=== PATIENT | male | born 1960 | race African-American/Black ===

== ENCOUNTER 2019-10-07 09:40 | Inpatient (IN) | payer OTHER ==
[~2019-10-07] VITALS: Ht 175.3 cm; Wt 68.0 kg
[2019-10-07 10:06] LABS: BASOPHILS % 0.6 % (0.0-2.0); EOSINOPHILS % 2.9 % (0.0-5.0); HEMATOCRIT. 41.9 % (42.0-52.0); HEMOGLOBIN. 13.9 g/dL (14.0-18.0); LYMPHOCYTES % 61.7 % (20.0-50.0); MEAN CORPUSCULAR HEMOGLOBIN 28.8 pg (28.0-32.0); MEAN CORPUSCULAR VOLUME 87.2 fL (80.0-94.0); MEAN PLATELET VOLUME 8.4 fl (7.4-10.4); MONOCYTES % 7.1 % (2.0-8.0); NEUTROPHILS % 27.7 % (40.0-76.0); PLATELET 316 x1000/uL (130-400); RED BLOOD CELL COUNT 4.81 mill/uL (4.7-6.1); RED CELL DISTRIBUTION WIDTH 14.8 % (11.6-14.6)
[2019-10-07 10:13] LABS: CHLORIDE 108 mEq/L (98-107)
[2019-10-07 10:17] LABS: ETHANOL BLOOD < 10 mg/dL
[2019-10-07 10:55] LABS: CLARITY URINE CLOUDY (CLEAR); COLOR URINE YELLOW (YELLOW); KETONES URINE TRACE (NEGATIVE); LEUKOCYTE ESTERASE URINE TRACE (NEGATIVE); NITRITE URINE NEGATIVE (NEGATIVE); OCCULT BLOOD URINE NEGATIVE (NEGATIVE); PH URINE 5.5 (4.5-8.0); PROTEIN URINE 2+ (NEGATIVE); SPECIFIC GRAVITY URINE 1.021 (1.005-1.030)
[2019-10-07 11:30] LABS: *AMPHETAMINES SCREEN URINE NEGATIVE (NEGATIVE); *BARBITURATES SCREEN URINE NEGATIVE (NEGATIVE); *BENZODIAZEPINES SCREEN URINE NEGATIVE (NEGATIVE); *COCAINE SCREEN URINE NEGATIVE (NEGATIVE); METHADONE URINE SCREEN NEGATIVE (NEGATIVE); OPIATES URINE SCREEN PRESUMTIVE POSITIVE (NEGATIVE)
[2019-10-07 11:31] LABS: CANNABINOID URINE SCREEN PRESUMTIVE POSITIVE (NEGATIVE); PHENCYCLIDINE URINE SCREEN NEGATIVE (NEGATIVE)
[2019-10-07] MEDS ORDERED: ASPIRIN 325MG EC TABLET PO ONE (13:45)
[2019-10-07] MEDS ORDERED: HYDROCODONE/ACETAMINOPHEN 5/325MG TABLET PO PRN (17:08)
[2019-10-07] MEDS: MORPHINE SULFATE 2 MG/ML CPJ (NOT FOR IM USE) IV PRN (18:19)
[2019-10-07] MEDS ORDERED: CLONIDINE 0.1MG TABLET PO PRN (20:30)
[2019-10-07] MEDS ORDERED: ONDANSETRON HCL 4MG/2ML INJ IV PRN (20:30)
[2019-10-07] MEDS ORDERED: LORAZEPAM 2MG/ML CPJ IV PRN (20:30)
[2019-10-07] MEDS ORDERED: NALOXONE HCL 0.4 MG/ML 1ML VIAL IV ONE (20:30)
[2019-10-07] MEDS ORDERED: ACETAMINOPHEN 325MG TABLET PO PRN (20:30)
[2019-10-07] MEDS ORDERED: LEVETIRACETAM 500 MG in SODIUM CHLORIDE 0.9% 100 ML IV SCH (20:30)
[2019-10-07] MEDS ORDERED: IPRATROPIUM/ALBUTEROL 0.5-3(2.5)MG/3ML NEB HHN PRN (20:30)
[2019-10-07] MEDS ORDERED: DOCUSATE SODIUM 100MG CAPSULE PO PRN (20:30)
[2019-10-07] MEDS ORDERED: LEVETIRACETAM 500MG PREMIX 100 ML IV SCH (21:00)
[2019-10-07] MEDS ORDERED: NALOXONE HCL 0.4 MG/ML 1ML VIAL IV PRN (21:00)
[2019-10-07] MEDS: SODIUM CHLORIDE 0.9% 1,000 ML IV SCH (21:06)
[2019-10-07] MEDS: HYDROCODONE/ACETAMINOPHEN 5/325MG TABLET PO PRN (21:06)
[2019-10-07] MEDS: LORAZEPAM 2MG/ML CPJ IV PRN (21:06)
[2019-10-07 22:02] LABS: FOLIC ACID (FOLATE) SERUM 11.1 ng/mL (>5.38)
[2019-10-07] MEDS ORDERED: HYDR-3281 PO (23:51)
[2019-10-07 23:52] VITALS: BP 133/79
[2019-10-08] VITALS: BP 133/79
[2019-10-08 04:00] VITALS: BP 128/86
[2019-10-08] MEDS: MORPHINE SULFATE 2 MG/ML CPJ (NOT FOR IM USE) IV PRN (04:03)
[2019-10-08] MEDS: SODIUM CHLORIDE 0.9% 1,000 ML IV SCH (06:29)
[2019-10-08 08:00] VITALS: BP 112/78
[2019-10-08] MEDS: LEVETIRACETAM 500MG PREMIX 100 ML IV SCH ×2 (10:16→21:54)
[2019-10-08 12:00] VITALS: BP 121/82
[2019-10-08] MEDS: HYDROCODONE/ACETAMINOPHEN 5/325MG TABLET PO PRN ×2 (14:31→21:55)
[2019-10-08 16:00] VITALS: BP 119/80
[2019-10-08] MEDS: ATORVASTATIN CALCIUM 40MG TABLET PO SCH (21:55)
[2019-10-09 08:00] VITALS: BP 132/54
[2019-10-09] MEDS: LEVETIRACETAM 500MG PREMIX 100 ML IV SCH ×2 (09:13→20:24)
[2019-10-09 10:56] LABS: EOSINOPHILS % 1.4 % (0.0-5.0); HEMATOCRIT. 37.8 % (42.0-52.0); HEMOGLOBIN. 12.4 g/dL (14.0-18.0); MEAN CORPUSCULAR VOLUME 85.5 fL (80.0-94.0); MEAN PLATELET VOLUME 8.6 fl (7.4-10.4); NEUTROPHILS % 41.6 % (40.0-76.0); PLATELET 304 x1000/uL (130-400); RED BLOOD CELL COUNT 4.42 mill/uL (4.7-6.1); RED CELL DISTRIBUTION WIDTH 14.4 % (11.6-14.6)
[2019-10-09 11:06] LABS: CHLORIDE 109 mEq/L (98-107)
[2019-10-09 12:00] VITALS: BP 126/59
[2019-10-09] MEDS: SODIUM CHLORIDE 0.9% 1,000 ML IV SCH (12:29)
[2019-10-09] MEDS ORDERED: POTASSIUM CHLORIDE 20MEQ TABLET SR PO NR (15:00)
[2019-10-09] MEDS: LORAZEPAM 2MG/ML CPJ IV PRN ×2 (15:43→20:54)
[2019-10-09 16:00] VITALS: BP 129/57
[2019-10-09 20:00] VITALS: BP 128/80
[2019-10-09] MEDS: ATORVASTATIN CALCIUM 40MG TABLET PO SCH (20:24)
[2019-10-10] VITALS: BP 121/83
[2019-10-10] MEDS: SODIUM CHLORIDE 0.9% 1,000 ML IV SCH ×3 (02:36→18:00)
[2019-10-10 04:00] VITALS: BP 124/88
[2019-10-10 07:43] LABS: BASOPHILS % 0.7 % (0.0-2.0); EOSINOPHILS % 2.8 % (0.0-5.0); HEMATOCRIT. 37.2 % (42.0-52.0); HEMOGLOBIN. 12.3 g/dL (14.0-18.0); LYMPHOCYTES % 63.5 % (20.0-50.0); MEAN CORPUSCULAR HEMOGLOBIN 28.5 pg (28.0-32.0); MEAN CORPUSCULAR VOLUME 86.2 fL (80.0-94.0); MEAN PLATELET VOLUME 8.7 fl (7.4-10.4); MONOCYTES % 8.3 % (2.0-8.0); NEUTROPHILS % 24.7 % (40.0-76.0); PLATELET 291 x1000/uL (130-400); RED BLOOD CELL COUNT 4.32 mill/uL (4.7-6.1); RED CELL DISTRIBUTION WIDTH 14.6 % (11.6-14.6)
[2019-10-10 08:00] VITALS: BP 126/79
[2019-10-10 08:00] LABS: CHLORIDE 110 mEq/L (98-107)
[2019-10-10] MEDS: LEVETIRACETAM 500MG PREMIX 100 ML IV SCH ×2 (10:05→21:11)
[2019-10-10 12:00] VITALS: BP 136/85
[2019-10-10 16:00] VITALS: BP 127/85
[2019-10-10] MEDS: HYDROCODONE/ACETAMINOPHEN 5/325MG TABLET PO PRN (18:11)
[2019-10-10 20:00] VITALS: BP 130/85
[2019-10-10] MEDS: ATORVASTATIN CALCIUM 40MG TABLET PO SCH (21:30)
[2019-10-10 22:22] LABS: BASOPHILS % 0.9 % (0.0-2.0); EOSINOPHILS % 1.9 % (0.0-5.0); HEMATOCRIT. 37.4 % (42.0-52.0); HEMOGLOBIN. 12.3 g/dL (14.0-18.0); LYMPHOCYTES % 59.8 % (20.0-50.0); MEAN CORPUSCULAR HEMOGLOBIN 28.3 pg (28.0-32.0); MEAN CORPUSCULAR VOLUME 85.9 fL (80.0-94.0); MEAN PLATELET VOLUME 8.9 fl (7.4-10.4); MONOCYTES % 8.1 % (2.0-8.0); NEUTROPHILS % 29.3 % (40.0-76.0); PLATELET 302 x1000/uL (130-400); RED BLOOD CELL COUNT 4.36 mill/uL (4.7-6.1); RED CELL DISTRIBUTION WIDTH 14.5 % (11.6-14.6)
[2019-10-10 22:24] LABS: CHLORIDE 110 mEq/L (98-107)
[2019-10-11] VITALS: BP 126/88
[2019-10-11] MEDS: HYDROCODONE/ACETAMINOPHEN 5/325MG TABLET PO PRN (02:07)
[2019-10-11 08:00] VITALS: BP 126/85
[2019-10-11] MEDS: LEVETIRACETAM 500MG PREMIX 100 ML IV SCH (09:00)
[2019-10-11] MEDS: SODIUM CHLORIDE 0.9% 1,000 ML IV SCH ×2 (09:48→14:29)
[2019-10-11 12:00] VITALS: BP 124/85
[2019-10-11] MEDS ORDERED: KEPP500 MT (15:59)
[2019-10-11] MEDS ORDERED: LIP40 PO (15:59)
[2019-10-11 16:00] VITALS: BP 127/86
[2019-10-11 18:28] VITALS: BP 118/82
[2019-10-11 20:00] VITALS: BP 105/60
== END 2019-10-11 20:52 | disposition home or self-care (01) | DRG 100 ==
LOC: ER 09:40 → EDBD 09:40 → ENRESERV 21:21 → 5WST 22:48
PROVIDERS: ADMIT Internal Medicine; ATTEND Internal Medicine
DX: G40.909 Epilepsy, unspecified, not intractable, without status epilepticus (principal); G92 Toxic encephalopathy; G45.9 Transient cerebral ischemic attack, unspecified; D64.9 Anemia, unspecified; F17.210 Nicotine dependence, cigarettes, uncomplicated; G93.89 Other specified disorders of brain; D72.820 Lymphocytosis (symptomatic); J34.1 Cyst and mucocele of nose and nasal sinus; R80.9 Proteinuria, unspecified; E78.5 Hyperlipidemia, unspecified; R26.81 Unsteadiness on feet; I69.90 Unspecified sequelae of unspecified cerebrovascular disease; Z59.0 Homelessness
CPT/HCPCS: 36415; 70551; 71045; 80048; 80053; 80061; 80185; 80305; 80320; 81003; 82607; 82728; 82746; 83036; 83540; 83550; 83880; 84145; 84443; 85025; 97116; 97162; 97530; 99285; J1953; J2060; J2270; G0480

== ENCOUNTER 2024-06-25 10:12 | Inpatient (IN) | payer OTHER, MEDICAID ==
[~2024-06-25] VITALS: Ht 177.8 cm; Wt 67.6 kg
[~2024-06-25 10:12] MED LIST: HYDR-4346 PO; KEPP500 MT; LIP40 PO
[2024-06-25 10:13] VITALS: O2SAT 98
[2024-06-25 11:02] LABS: CHLORIDE 106 mEq/L (98-107); DIFFERENTIAL COMMENT 0; EOSINOPHILS % 3.7 % (0.0-5.0); HEMATOCRIT. 39.1 % (42.0-52.0); HEMOGLOBIN. 12.4 g/dL (14.0-18.0); LYMPHOCYTES % 44.7 % (20.0-50.0); MEAN CORPUSCULAR HGB CONC 31.7 g/dL (31.0-37.0); MEAN CORPUSCULAR VOLUME 85.3 fL (80.0-94.0); MEAN PLATELET VOLUME 9.6 fl (7.4-10.4); MONOCYTES % 12.4 % (2.0-8.0); NEUTROPHILS % 38.2 % (40.0-76.0); PLATELET 353 x1000/uL (130-400); RED BLOOD CELL COUNT 4.58 mill/uL (4.7-6.1); RED CELL DISTRIBUTION WIDTH 16.4 % (11.6-14.6); SODIUM 140 mEq/L (136-145); WHITE BLOOD COUNT 8.5 x1000/uL (4.5-11.0)
[2024-06-25 11:03] LABS: CALCIUM 9.5 mg/dL (8.7-10.4); CARBON DIOXIDE 29 mEq/L (21-32)
[2024-06-25 11:08] LABS: CREATININE 0.8 mg/dL (0.6-1.3); GLUCOSE 82 mg/dL (70-105); UREA NITROGEN BLOOD 19 mg/dL (9-23)
[2024-06-25 11:12] LABS: TROPONIN I HIGH SENSITIVITY < 4 ng/L (3.0-53)
[2024-06-25 12:37] VITALS: BP 128/90; PULSE 72; RESP 17; TEMP 37.1; O2SAT 100
[2024-06-25 13:32] VITALS: BP 128/90; PULSE 85; RESP 17; TEMP 37.1
[2024-06-25] MEDS ORDERED: ASPI-1497 PO (14:06)
[2024-06-25] MEDS ORDERED: NALOXONE HCL 0.4MG/ML VIAL IV PRN (15:00)
[2024-06-25] MEDS: HYDROCODONE/ACETAMINOPHEN 5/325MG TABLET PO PRN (15:05)
[2024-06-25 16:00] VITALS: BP 105/68; PULSE 80; RESP 18; TEMP 37; O2SAT 98
[2024-06-25 16:43] LABS: CLARITY URINE CLOUDY (CLEAR); COLOR URINE YELLOW (YELLOW); GLUCOSE URINE NEGATIVE (NEGATIVE); KETONES URINE NEGATIVE (NEGATIVE); LEUKOCYTE ESTERASE URINE NEGATIVE (NEGATIVE); NITRITE URINE NEGATIVE (NEGATIVE); OCCULT BLOOD URINE NEGATIVE (NEGATIVE); PROTEIN URINE TRACE (NEGATIVE); SPECIFIC GRAVITY URINE 1.026 (1.005-1.030); UROBILINOGEN URINE 0.2 E.U./dL (0.2-1.0)
[2024-06-25] MEDS ORDERED: REGADENOSON 0.4 MG/5 ML IV NR (16:45)
[2024-06-25 16:58] LABS: *AMPHETAMINES SCREEN URINE NEGATIVE (NEGATIVE); *BARBITURATES SCREEN URINE NEGATIVE (NEGATIVE); *BENZODIAZEPINES SCREEN URINE NEGATIVE (NEGATIVE); *COCAINE SCREEN URINE PRESUMPTIVE POSITIVE (NEGATIVE)
[2024-06-25 16:59] LABS: CANNABINOID URINE SCREEN PRESUMPTIVE POSITIVE (NEGATIVE); ECSTASY MDMA SCREEN URINE NEGATIVE (NEGATIVE); METHADONE URINE SCREEN NEGATIVE (NEGATIVE); OPIATES URINE SCREEN NEGATIVE (NEGATIVE); PHENCYCLIDINE URINE SCREEN NEGATIVE (NEGATIVE)
[2024-06-25 17:06] LABS: AMORPHOUS SEDIMENT URINE 1+ /lpf; BACTERIA URINE TRACE; RBC URINE NONE SEEN /hpf (0-2); SQUAMOUS EPITHELIAL CELL URINE RARE /lpf (RARE/1+); WBC URINE NONE SEEN /hpf (0-2)
[2024-06-25] MEDS: ENOXAPARIN 40MG/0.4ML SYR SUBCUT SCH (18:37)
[2024-06-25] MEDS ORDERED: POLYVINYL ALCOHOL OPHTH DROPS 15ML RIGHTEYE PRN (19:00)
[2024-06-25 20:01] VITALS: BP 105/75; PULSE 72; RESP 15; TEMP 36.2; O2SAT 95
[2024-06-25] MEDS: ATORVASTATIN CALCIUM 40MG TABLET PO SCH (21:13)
[2024-06-25] MEDS: MELATONIN 3MG TABLET PO SCH (21:13)
[2024-06-25] MEDS: LEVETIRACETAM 500MG TABLET PO SCH (21:14)
[2024-06-26 00:01] VITALS: BP 97/70; PULSE 72; RESP 13; TEMP 36.8; O2SAT 95
[2024-06-26 00:07] LABS: CREATINE KINASE MB FRACTION 2.6 ng/mL (0.5-3.6)
[2024-06-26 00:09] LABS: CREATINE KINASE 114 IU/L (46-171)
[2024-06-26 00:14] LABS: TROPONIN I HIGH SENSITIVITY < 4 ng/L (3.0-53)
[2024-06-26 04:01] VITALS: BP 117/68; PULSE 77; RESP 13; TEMP 36.4; O2SAT 94
[2024-06-26 08:00] VITALS: BP 112/76; PULSE 79; RESP 14; TEMP 36.6; O2SAT 95
[2024-06-26] MEDS: ASPIRIN 81MG EC TABLET PO SCH (08:13)
[2024-06-26 10:58] LABS: CREATINE KINASE MB FRACTION 2.7 ng/mL (0.5-3.6)
[2024-06-26 10:59] LABS: TROPONIN I HIGH SENSITIVITY < 4 ng/L (3.0-53)
[2024-06-26 11:00] LABS: CREATINE KINASE 108 IU/L (46-171)
[2024-06-26 11:41] LABS: HEPATITIS B SURFACE ANTIGEN NEGATIVE (Negative)
[2024-06-26 12:00] VITALS: BP 106/64; PULSE 62; RESP 15; TEMP 36.6; O2SAT 98
[2024-06-26 12:02] LABS: HEPATITIS C AB NON REACTIVE (Neg) (Negative)
== END 2024-06-26 16:00 | disposition left against medical advice (07) | DRG 311 ==
LOC: ER 10:12 → 3WST 11:47
PROVIDERS: ADMIT Family Medicine Adult Medicine; ATTEND Family Medicine Adult Medicine
DX: I24.9 Acute ischemic heart disease, unspecified (principal); I69.354 Hemiplegia and hemiparesis following cerebral infarction affecting left non-dominant side; I10 Essential (primary) hypertension; F10.10 Alcohol abuse, uncomplicated; Y90.9 Presence of alcohol in blood, level not specified; Z79.899 Other long term (current) drug therapy; Z53.29 Procedure and treatment not carried out because of patient's decision for other reasons
CPT/HCPCS: 36415; 71045; 80048; 80305; 81003; 82550; 82553; 83880; 84484; 85025; 86705; 87340; 93005; 93306; 93970; 99291; J1650